=== PATIENT | female | born 1955 | race African-American/Black ===

== ENCOUNTER 2017-01-21 12:30 | Emergency (ER) | payer OTHER ==
[~2017-01-21] VITALS: Ht 160 cm; Wt 140.0 kg
[2017-01-21 12:42] VITALS: BP 201/98; PULSE 78; RESP 16; TEMP 97.8; O2SAT 98
[2017-01-21] MEDS ORDERED: LISI40TA PO (13:26)
[2017-01-21] MEDS ORDERED: CARV6.25 PO (13:26)
[2017-01-21] MEDS ORDERED: HYDR-3583 PO (13:26)
[2017-01-21] MEDS ORDERED: TEGR200T PO (13:26)
[2017-01-21] MEDS ORDERED: LACTCAP8 PO (13:26)
[2017-01-21] MEDS ORDERED: SODIUM CHLORIDE 0.9% FLUSH 10 ML FLUSH IVF PRN (13:45)
[2017-01-21] MEDS ORDERED: MORPHINE SULFATE 8 MG/ML INJ IV PUSH ONE (13:45)
[2017-01-21] MEDS ORDERED: ONDANSETRON HCL 4 MG/2 ML VIAL IV PUSH ONE (13:45)
[2017-01-21 14:00] VITALS: O2SAT 99
[2017-01-21 14:02] LABS: AUTOMATED NEUTROPHIL # 3.6 TH/MM3 (1.8-7.7); BASOPHIL # 0.1 TH/MM3 (0-0.2); BASOPHIL % 1.3 % (0.0-2.0); EOSINOPHIL # 0.2 TH/MM3 (0-0.4); EOSINOPHIL % 3.5 % (0.0-4.0); HEMATOCRIT 38.8 % (35.0-46.0); HEMO FLAGS DIFF FINAL; LYMPH % 32.4 % (9.0-44.0); LYMPHOCYTE # 2.2 TH/MM3 (1.0-4.8); MEAN CORPUSCULAR HEMOGLOBIN 28.6 PG (27.0-34.0); MEAN CORPUSCULAR HGB CONC 33.2 % (32.0-36.0); NEUT % 53.8 % (16.0-70.0); PLATELET COUNT 216 TH/MM3 (150-450); RED BLOOD COUNT 4.51 MIL/MM3 (4.00-5.30); RED CELL DISTRIBUTION WIDTH 13.5 % (11.6-17.2); WHITE BLOOD COUNT 6.8 TH/MM3 (4.0-11.0)
--- NOTE | 2017-01-21 14:03 | PD ---
HPI Chief Complaint: Seizure Time Seen by Provider: 13:53 Travel History International Travel<30 days: No Contact w/Intl Traveler<30days: No Traveled to known affect area: No History of Present Illness HPI Patient is a 61-year-old female that presents emergency room for evaluation of a witnessed seizure that occurred prior to arrival. Patient has a history of seizures, she is currently on Tegretol which she reports compliance with. Seizure was witnessed by her granddaughter, she states lasted almost 1 minute. Patient is currently reporting a headache, frontal in nature and her pain is a 7 out of 10. Patient has a history of migraines, headache she has today is similar to what she's had in the past. She does report an aura prior to the seizure. She denies any vomiting, chest pain, abdominal pain, incontinence, injury. Patient was laying in bed when it happened, granddaughter states that she just started to stare off blankly. She is followed by Dr. Landon. [facility] Past Medical History Hypertension: Yes Migraines: Yes Seizures: Yes ?: Not Ectopic : Yes Social History Alcohol Use: No Tobacco Use: No Substance Use: No Allergies-Medications (Allergen,Severity, Reaction): Coded Allergies: Codeine (Verified Allergy, Unknown, 01/21/17) Imitrex (Verified Allergy, Unknown, 01/21/17) Penicillin (Verified Allergy, Unknown, 01/21/17) Reported Meds & Prescriptions Reported Meds & Active Scripts Active Reported Probiotic (Lactobacillus Acidophilus) 1 Cap Cap 1 Cap PO TIDAC Coreg (Carvedilol) 6.25 Mg Tab 6.25 Mg PO BID Lisinopril 40 Mg Tab 40 Mg PO DAILY Hydrocodone-Acetaminophen 10-325 mg Tab 1 Tab PO Q6H PRN Tegretol (Carbamazepine) 200 Mg Tab 200 Mg PO BID Review of Systems Except as stated in HPI: all other systems reviewed are Neg HENT: Positive: Headaches Gastrointestinal: Positive: Nausea Neurologic: Positive: Seizures Physical Exam Narrative GENERAL: Obese, well-developed, alert female. Resting comfortably in no acute distress. SKIN: Warm and dry. HEAD: Atraumatic. Normocephalic. EYES: Pupils equal and round. No scleral icterus. No injection or drainage. ENT: No nasal bleeding or discharge. Mucous membranes pink and moist. NECK: Trachea midline. No JVD. CARDIOVASCULAR: Regular rate and rhythm. RESPIRATORY: No accessory muscle use. Clear to auscultation. Breath sounds equal bilaterally. GASTROINTESTINAL: Abdomen soft, non-tender, nondistended. Hepatic and splenic margins not palpable. MUSCULOSKELETAL: Extremities without clubbing, cyanosis, or edema. No obvious deformities. NEUROLOGICAL: Awake and alert. No obvious cranial nerve deficits. Motor grossly within normal limits. Five out of 5 muscle strength in the arms and legs. Normal speech. PSYCHIATRIC: Appropriate mood and affect; insight and judgment normal. Data Data Last Documented VS Vital Signs Date Time Temp Pulse Resp B/P Pulse Ox O2 Delivery O2 Flow Rate FiO2 01/21/17 14:00 99 01/21/17 12:42 97.8 78 16 201/98 Orders Complete Blood Count With Diff (01/21/17 13:40) Carbamazepine (Tegretol) (01/21/17 13:40) Electrocardiogram (01/21/17 ) Ct Brain W/O Iv Contrast(Rout) (01/21/17 ) Blood Glucose (01/21/17 13:40) Ecg Monitoring (01/21/17 13:40) Iv Access Insert/Monitor (01/21/17 13:40) Oximetry (01/21/17 13:40) Comprehensive Metabolic Panel (01/21/17 13:40) Sodium Chloride 0.9% Flush (Ns Flush) (01/21/17 13:45) Ondansetron Inj (Zofran Inj) (01/21/17 13:45) Morphine Inj (Morphine Inj) (01/21/17 13:45) Labs Laboratory Tests Test 01/21/17 13:45 White Blood Count 6.8 TH/MM3 Red Blood Count 4.51 MIL/MM3 Hemoglobin 12.9 GM/DL Hematocrit 38.8 % Mean Corpuscular Volume 86.0 FL Mean Corpuscular Hemoglobin 28.6 PG Mean Corpuscular Hemoglobin 33.2 % Concent Red Cell Distribution Width 13.5 % Platelet Count 216 TH/MM3 Mean Platelet Volume 8.7 FL Neutrophils (%) (Auto) 53.8 % Lymphocytes (%) (Auto) 32.4 % Monocytes (%) (Auto) 9.0 % Eosinophils (%) (Auto) 3.5 % Basophils (%) (Auto) 1.3 % Neutrophils # (Auto) 3.6 TH/MM3 Lymphocytes # (Auto) 2.2 TH/MM3 Monocytes # (Auto) 0.6 TH/MM3 Eosinophils # (Auto) 0.2 TH/MM3 Basophils # (Auto) 0.1 TH/MM3 CBC Comment DIFF FINAL Differential Comment Sodium Level 141 MEQ/L Potassium Level 3.7 MEQ/L Chloride Level 107 MEQ/L Carbon Dioxide Level 26.3 MEQ/L Anion Gap 8 MEQ/L Blood Urea Nitrogen 14 MG/DL Creatinine 0.92 MG/DL Estimat Glomerular Filtration 62 ML/MIN Rate Random Glucose 92 MG/DL Calcium Level 8.4 MG/DL Total Bilirubin 0.2 MG/DL Aspartate Amino Transf 10 U/L (AST/SGOT) Alanine Aminotransferase 14 U/L (ALT/SGPT) Alkaline Phosphatase 69 U/L Total Protein 8.0 GM/DL Albumin 3.4 GM/DL Carbamazepine (Tegretol) Level 8.7 MCG/ML MDM Medical Decision Making Medical Screen Exam Complete: Yes Emergency Medical Condition: Yes Interpretation(s) Vital Signs Date Time Temp Pulse Resp B/P Pulse Ox O2 Delivery O2 Flow Rate FiO2 01/21/17 12:42 97.8 78 16 201/98 98 Differential Diagnosis Seizure versus metabolic disturbance versus arrhythmia versus migraine versus bleed Narrative Course Patient 61-year-old female presenting for evaluation after a seizure. She has a history of the same, compliant with Tegretol. She is alert with no focal deficits noted. Labs and imaging ordered and pending. CBC, chemistry are without acute findings, Tegretol level is normal. 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 States she had a stroke in 1978. Patient reports improvement in her headache after medication administration. She is to follow-up with her neurologist in 1-2 days, continue home medications. She was advised to return to emergency department for any new or worsening symptoms. Patient verbalized understanding of instructions. Patient is stable for discharge. Diagnosis Primary Impression: Seizure Referrals: Neurologist 2 days Patient Instructions: General Instructions, Recurrent Seizures in Adults (GEN) Additional Instructions: Follow-up with Dr. Landon in 1-2 days Take medications as directed Maintain adequate fluid intake Return to emergency department for any new or worsening symptoms Med/Other Pt SpecificInfo: No Change to Meds Disposition: 01 DISCHARGE HOME Condition: Stable Mini Reid Jan 21, 2017 14:03
[2017-01-21 14:16] LABS: ALT (GPT) 14 U/L (10-53); ANION GAP 8 MEQ/L (5-15); AST (GOT) 10 U/L (15-37); BICARBONATE 26.3 MEQ/L (21.0-32.0); BLOOD UREA NITROGEN 14 MG/DL (7-18); CHLORIDE 107 MEQ/L (98-107); GLOMERULAR FILTRATION RATE 62 ML/MIN (>89); POTASSIUM 3.7 MEQ/L (3.5-5.1); SODIUM (NA) 141 MEQ/L (136-145)
[2017-01-21 14:18] LABS: ALKALINE PHOSPHATASE 69 U/L (45-117); TOTAL BILIRUBIN ADULT 0.2 MG/DL (0.2-1.0)
--- NOTE | 2017-01-21 14:48 | RADRPT ---
EXAM DATE/TIME: 01/21/2017 14:38 [place] COMPARISON: No previous studies available for comparison. INDICATIONS : Seizure today RADIATION DOSE: 40.29 CTDIvol (mGy) MEDICAL HISTORY : Seizures. Hypertension. SURGICAL HISTORY : None. ENCOUNTER: Initial ACUITY: 1 day PAIN SCALE: 5/10 LOCATION: cranial TECHNIQUE: Multiple contiguous axial images were obtained of the head. Using automated exposure control and adj ustment of the mA and/or kV according to patient size, radiation dose was kept as low as reasonably a chievable to obtain optimal diagnostic quality images. DICOM format image data is available electro nically for review and comparison. FINDINGS: CEREBRUM: The ventricles are normal for age. There is a 2.2 x 3.8 cm area of encephalomalacia involving the lef t frontal lobe. No evidence of midline shift, mass lesion, hemorrhage or acute infarction. No extr a-axial fluid collections are seen. Cavum septum pellucidum POSTERIOR FOSSA: The cerebellum and brainstem are intact. The 4th ventricle is midline. The cerebellopontine angle i s unremarkable. EXTRACRANIAL: The visualized portion of the orbits is intact. SKULL: The calvaria is intact. No evidence of skull fracture. CONCLUSION: Left frontal stroke. No evidence of surrounding hemorrhage or edema. No evidence of an acute event Roland Martinez MD on January 21, 2017 at 14:46 Board Certified Radiologist. This report was verified electronically.
--- NOTE | 2017-01-22 19:13 | EKG ---
Date Performed: 01/21/2017 Time Performed: 14:04:06 PTAGE: 61 years EKG: Sinus rhythm POSSIBLE ANTERIOR MYOCARDIAL INFARCTION BORDERLINE ECG NO PREVIOUS TRACING DOCTOR: Laurent Cat Interpretating Date/Time 01/22/2017 19:11:33
== END 2017-01-21 15:32 | disposition home or self-care (01) ==
LOC: NEPE 12:30
DX: R56.9 Unspecified convulsions (principal); R51 Headache; I10 Essential (primary) hypertension; R94.31 Abnormal electrocardiogram [ECG] [EKG]; Z86.69 Personal history of other diseases of the nervous system and sense organs
CPT/HCPCS: 70450; 80053; 80156; 85025; 93005; 96374; 96375; 99285; J2270; J2405

== ENCOUNTER 2017-02-25 16:40 | Emergency (ER) | payer OTHER, MEDICAID ==
[~2017-02-25] VITALS: Ht 162.6 cm; Wt 130.0 kg
[2017-02-25] VITALS (7 sets, daily range): BP systolic 165–217; BP diastolic 76–104; PULSE 80–97; RESP 18–20; TEMP 98.9; O2SAT 96–99
[~2017-02-25 16:40] MED LIST: CARV6.25 PO; HYDR-3583 PO; LACTCAP8 PO; LISI40TA PO; TEGR200T PO
--- NOTE | 2017-02-25 17:49 | PD ---
Physical Exam Date Seen by Provider: Feb 25, 2017 Time Seen by Provider: 17:49 Narrative 61 y/o female with THACKER for the past 2 weeks. Patient states frequent falls, some with dizziness, sometimes she "blacks out". THACKER 04/16. Patient has multiple abrasions to her hands and knees without current bleeding. Vital Signs reviewed. Patient is Stable and awaiting Bed Placement. Data Data Last Documented VS Vital Signs Date Time Temp Pulse Resp B/P (MAP) Pulse Ox O2 Delivery O2 Flow Rate FiO2 02/25/17 17:52 87 18 183/88 (119) 96 Room Air 02/25/17 16:42 98.9 MDM Medical Record Reviewed: Yes Supervised Visit with KRISTINA: Yes Condition: Stable Franki Hemphill Feb 25, 2017 17:49
--- NOTE | 2017-02-25 19:50 | PD ---
HPI Chief Complaint: Headache Time Seen by Provider: 19:20 Travel History International Travel<30 days: No Contact w/Intl Traveler<30days: No Traveled to known affect area: No History of Present Illness HPI The patient is a 61-year-old Radha female who presents to the emergency department for headache. The patient states her headache started several days ago, over the weekend, and was initially dull and achy. The headache is located over the entire frontal aspect of the head, moderate, and assisted with mild photophobia. The headache came on gradually, has been waxing and waning, and is associated with mild photophobia. However, she denies any nausea, vomiting, visual acuity changes, or focal deficits. The patient thinks her migraine is exacerbated by her elevated blood pressure. She does have a history of migraines with similar symptoms in the past and states she normally gets good relief from Phenergan and Stadol. She denies any acute onset or thunderclap quality to her headache. Symptoms are mild to moderate, possibly exacerbated by elevated blood pressure and history of migraines, and there are no current alleviating factors. PFSH Past Medical History Hypertension: Yes Migraines: Yes Seizures: Yes Tetanus Vaccination: < 5 Years Influenza Vaccination: Yes Ectopic : Yes Social History Alcohol Use: No Tobacco Use: No Substance Use: No Allergies-Medications (Allergen,Severity, Reaction): Coded Allergies: codeine (Unverified Allergy, Unknown, 02/25/17) penicillin G (Unverified Allergy, Unknown, 02/25/17) sumatriptan (Unverified Allergy, Unknown, 02/25/17) Reported Meds & Prescriptions Reported Meds & Active Scripts Active Reported Coreg (Carvedilol) 6.25 Mg Tab 6.25 Mg PO BID Lisinopril 40 Mg Tab 40 Mg PO DAILY Hydrocodone-Acetaminophen 10-325 mg Tab 1 Tab PO Q6H PRN Tegretol (Carbamazepine) 200 Mg Tab 200 Mg PO BID Review of Systems Except as stated in HPI: all other systems reviewed are Neg General / Constitutional: No: Fever Eyes: Positive: Photophobia, No: Blurred Vision HENT: Positive: Headaches, No: Lightheadedness, Neck Stiffness, Neck Pain Cardiovascular: No: Chest Pain or Discomfort Respiratory: No: Shortness of Breath Gastrointestinal: No: Nausea, Vomiting, Abdominal Pain Neurologic: Positive: Headache, No: Dizziness, Change in Mentation, Slurred Speech, Paresthesia, Sensory Disturbance Physical Exam Narrative GENERAL: Awake, alert, pleasant 61-year-old female who appears her stated age and is in no acute respiratory distress. SKIN: Focused skin assessment warm/dry. HEAD: Atraumatic. Normocephalic. EYES: Pupils equal and round. Pupils are 4 mm bilateral and reactive. Patient is wearing glasses. EOMs are intact. ENT: No nasal bleeding or discharge. Mucous membranes pink and moist. NECK: Trachea midline. No JVD. No meningeal signs. CARDIOVASCULAR: Regular rate and rhythm. No murmur appreciated. RESPIRATORY: No accessory muscle use. Clear to auscultation. Breath sounds equal bilaterally. GASTROINTESTINAL: Abdomen soft, non-tender, nondistended. No rebound tenderness. MUSCULOSKELETAL: No obvious deformities. No clubbing. No cyanosis. No edema. NEUROLOGICAL: Awake and alert. No obvious cranial nerve deficits. Motor grossly within normal limits. Normal speech. Nonfocal. Oriented 4. Follows commands without difficulty. PSYCHIATRIC: Appropriate mood and affect; insight and judgment normal. Data Data Last Documented VS Vital Signs Date Time Temp Pulse Resp B/P (MAP) Pulse Ox O2 Delivery O2 Flow Rate FiO2 02/25/17 20:07 80 18 177/82 (113) 97 Room Air 02/25/17 16:42 98.9 Orders Orders Promethazine Inj (Phenergan Inj) (02/25/17 20:00) Morphine Inj (Morphine Inj) (02/25/17 20:00) Lisinopril (Prinivil) (02/25/17 21:15) [facility] Medical Decision Making Medical Screen Exam Complete: Yes Emergency Medical Condition: Yes Medical Record Reviewed: Yes Differential Diagnosis Differential diagnosis includes migraine, tension headache, cluster headache, temporal arteritis, hypertensive urgency, hypertensive emergency, intracranial hemorrhage. Narrative Course I had a discussion with the patient at bedside who states that this is her normal headache, there is no acute onset and there is no focal deficits. She does complain of mild photophobia, the patient initially thought her headache was related to her elevated blood pressure which has improved to systolic in the 160s and diastolic in the 70s. After discussion with the patient was agreed she would receive an IM injection of morphine and Phenergan and reevaluation after one hour's duration. The patient was reevaluated at 9 PM, her headache had resolved. However, her systolic blood pressure was in the 170s and diastolic in the 80s, she has not taken her nighttime dose of lisinopril. Therefore, the patient was administered lisinopril 40 mg. She is advised to keep a blood pressure log and a follow-up with her primary physician if he continues to be elevated for further management. The patient agrees and understands. Diagnosis Primary Impression: Cephalgia Qualified Codes: R51 - Headache Additional Impression: Hypertension Qualified Codes: I10 - Essential (primary) hypertension Patient Instructions: General Instructions Additional Instructions: Follow-up with your primary physician. Keep a blood pressure log for the next 2 weeks, if he continues to be elevated, follow-up with her primary physician for further evaluation and management. Return if symptoms worsen or progress. Disposition: 01 DISCHARGE HOME Condition: Stable Jaime Osorio MD Feb 25, 2017 19:50
[2017-02-25] MEDS ORDERED: MORPHINE SULFATE 4 MG/ML INJ IM ONE (20:00)
[2017-02-25] MEDS ORDERED: PROMETHAZINE INJ 25 MG/ML VIAL IM ONE (20:00)
[2017-02-25] MEDS ORDERED: LISINOPRIL 20 MG TAB PO ONE (21:15)
== END 2017-02-25 22:06 | disposition home or self-care (01) ==
LOC: NEPE 16:40
DX: R51 Headache (principal); I10 Essential (primary) hypertension
CPT/HCPCS: 96372; 99284; J2270; J2550